=== PATIENT | female | born 1945 ===

== ENCOUNTER 2018-02-11 07:06 | Day surgery (SDC) | payer OTHER ==
[~2018-02-11 07:06] MED LIST: GABAPENTIN300 MG PO; HUMALOG100 UNIT/1; JANUMET XR 50-1 EAC1 PO; LANTUS SOL100 UNIT/1; LASIX20 MG PO; LOSARTAN-HCTZ1 EAC1 PO; SIMVASTATIN40 MG PO; SYNTHROID50 MCG PO; TRAZODONE HCL50 MG PO
[2018-02-11] MEDS ORDERED: TRAMADOL HCL50 MG PO (12:45)
== END 2018-02-11 15:25 | disposition home or self-care (01) ==
LOC: CIR.AMB 07:06
DX: E06.3 Autoimmune thyroiditis (principal)